=== PATIENT | female | born 2000 | race Caucasian/White ===

== ENCOUNTER 2022-11-29 20:05 | Emergency (ER) | payer MEDICAID ==
[~2022-11-29] VITALS: Ht 162.6 cm; Wt 79.8 kg
[2022-11-29 20:30] VITALS: BP 129/71; PULSE 65; RESP 17; TEMP 98; O2SAT 99
[2022-11-29] MEDS: DEXAMETHASONE 10 MG/ML VIAL IM ONE (22:55)
[2022-11-29 23:01] VITALS: BP 118/68; PULSE 67; RESP 16; TEMP 98; O2SAT 99
== END 2022-11-29 23:01 | disposition home or self-care (01) ==
LOC: MED 20:05
DX: R07.0 Pain in throat (principal)
CPT/HCPCS: 87081; 96372; 99283; J1100